=== PATIENT | male | born 1965 | race Caucasian/White ===

== ENCOUNTER → 2017-01-20 | Day surgery (SDC) | payer OTHER ==
[~2017-01-20] VITALS: Ht 175.3 cm; Wt 77.1 kg
[~2017-01-20] MED LIST: HYDROmorphone HCL 2 MG/ML VL ONE; KETOROLAC TROMETH 30 MG/ML 1ML VIAL IV ONE; LABETALOL HCL 5 MG/ML 4ML SYRINGE IV ONE; LIDOCAINE W/ EPINEPHRINE 1 % INJ 30ML ONE; METOCLOPRAMIDE HCL 5MG/ml INJ 2ml VIAL IV ONE; MIDAZOLAM HCL 1MG/1ML-2 ML VIAL ONE; ONDANSETRON HCL 4 MG/2 ML VIAL ONE; PROPOFOL 10 MG/ML 20 ML IV ONE; ROCURONIUM 10MG/ML 10ML VIAL IV ONE; SODIUM CHLORIDE LOCK 10 ML ONE; SUCCINYLCHOLINE CHLORIDE 20 MG/ML 10ML VIAL IV ONE; ceFAZolin 1GM/50ML D5W 50 ML IV ONE; fentaNYL CITRATE 100 MCG/2 ML VL ONE
[2017-01-20 13:03] LABS: Basophils # (auto) 0.1 uL; Basophils % (auto) 0.8 % (0.0-2.0); CONDITION Y; Eosinophils # (auto) 0.2 uL; Eosinophils % (auto) 2.2 % (0.0-7.0); Hematocrit 47.5 % (41.0-53.0); Hemoglobin 16.4 g/dL (13.5-17.5); Lymphocytes # (auto) 1.7 uL; Lymphocytes % (auto) 23.6 % (10.0-50.0); Mean Corpuscular Hemoglobin 33.5 pg (28.0-32.0); Mean Corpuscular Hgb Conc. 34.5 g/dL (32.0-36.0); Mean Corpuscular Volume 97.1 fL (80.0-100.0); Mean Platelet Volume 7.7 fL (7.4-10.4); Monocytes # (auto) 0.4 uL; Monocytes % (auto) 5.2 % (0.0-12.0); Neutrophils # (auto) 4.9 uL; Neutrophils % (auto) 68.2 % (37.0-80.0); Platelet Count (auto) 282 10^3/uL (140-450); Red Cell Distribution Width 13.4 % (11.6-16.0); White Blood Cell 7.2 10^3/uL (4.4-10.8)
[2017-01-20 13:20] LABS: INR 0.95 (0.9-1.15); Partial Thromboplastin Time 25.2 sec (22.64-33.71); Prothrombin Time 10.4 sec (9.37-12.3)
[2017-01-20 13:32] LABS: BUN/Creatinine Ratio 11.2; Calcium 8.7 mg/dL (8.5-10.1); Potassium 4.4 mmol/L (3.5-5.1)
[2017-01-20] MEDS: HYDROmorphone HCL 2 MG/ML VL IV PRN ×4 (14:45→15:15)
[2017-01-20 15:41] VITALS: BP 134/89
== END | disposition home or self-care (01) ==
LOC: SUR 11:55
PROVIDERS: ATTEND Urology
DX: N43.3 Hydrocele, unspecified (principal); Z87.891 Personal history of nicotine dependence
CPT/HCPCS: 36415; 55040; 71010; 80048; 85025; 85610; 85730; 88302; J0330; J0690; J1170; J2001; J2250; J2405; J2704; J3010; J3490